=== PATIENT | female | born 1960 | race African-American/Black ===

== ENCOUNTER 2018-01-14 17:52 | Inpatient (IN) | payer OTHER ==
[~2018-01-14] VITALS: Ht 157.5 cm; Wt 65.8 kg
[2018-01-14] MEDS ORDERED: IBUP-1953 PO (18:14)
[2018-01-14] MEDS ORDERED: ATOR40TA PO (18:14)
[2018-01-14] MEDS ORDERED: LOSA50TA21 PO (18:14)
[2018-01-14] MEDS ORDERED: ASPI-1152 PO (18:14)
[2018-01-14] MEDS ORDERED: HUM10VIA SQ (18:22)
[2018-01-14] MEDS ORDERED: IV NS 0.9% 1,000 ML BAG IV ONE (18:30)
[2018-01-14] MEDS ORDERED: LORAZEPAM INJ 2 MG/ML VIAL IVP ONE (18:30)
[2018-01-14 18:49] LABS: BASOPHILS % (AUTO) 0.6 % (0.0-2.0); EOSINOPHILS % (AUTO) 1.8 % (0.0-6.0); HEMATOCRIT 45 % (33-45); HEMOGLOBIN 14.7 g/dL (11.5-14.8); LYMPHOCYTES % (AUTO) 34.4 % (20.0-44.0); MEAN CORPUSCULAR HGB CONC 32 g/dl (31.0-36.0); MEAN CORPUSCULAR VOLUME 91 fL (82-100); MONOCYTES # (AUTO) 0.3 /CMM (0.1-1.30); MONOCYTES % (AUTO) 5.9 % (2.0-12.0); NEUTROPHILS # (AUTO) 3.5 /CMM (1.8-8.9); NEUTROPHILS % (AUTO) 57.3 % (43.0-81.0); PLATELET COUNT (AUTO) 330 /CMM (150-450); RDW COEFFICIENT OF VARIATION 12.5 (11.5-15.0); RED BLOOD CELL COUNT(AUTO) 4.98 MIL/uL (4.0-5.2); WHITE BLOOD COUNT (AUTO) 5.9 K/uL (4.3-11.0)
[2018-01-14 18:56] LABS: ALBUMIN 3.8 g/dL (3.4-5.0); BILIRUBIN,DIRECT 0.1 mg/dL (0.0-0.2); BILIRUBIN,TOTAL 0.3 mg/dL (0.2-1.0); CALCIUM, SERUM 9.4 mg/dL (8.5-10.1); POTASSIUM 4.1 mmol/L (3.5-5.1); TOTAL PROTEIN, SERUM 7.9 g/dL (6.4-8.2)
[2018-01-14] MEDS ORDERED: LORAZEPAM INJ 2 MG/ML VIAL ONE (19:02)
[2018-01-14] MEDS ORDERED: LEVETIRACETAM (500MG) 500 MG/5 ML VIAL IV ONE (20:00)
[2018-01-14] MEDS ORDERED: LEVETIRACETAM (500MG) 500 MG in IV NS 0.9% 100 ML IV ONE (20:00)
[2018-01-14] MEDS ORDERED: ENALAPRILAT INJ (1.25 MG/ML) 1.25 MG/ML VIAL IV PRN (20:30)
[2018-01-14] MEDS ORDERED: MORPHINE SULFATE INJ 2 MG/ML DISP.SYRIN IV PRN (20:30)
[2018-01-14] MEDS ORDERED: INSULIN GLARGINE, 100 UNIT/ML CARTRIDGE SQ ONE ×2 (20:30→21:56)
[2018-01-14] MEDS ORDERED: MAG HYDROX/AL HYDROX/SIMETH 30 ML UDC PO PRN (20:30)
[2018-01-14] MEDS ORDERED: Z GUARD REMEDY 2 OZ OINT TP PRN (20:30)
[2018-01-14] MEDS ORDERED: LORAZEPAM INJ 2 MG/ML VIAL IV PRN (20:30)
[2018-01-14] MEDS ORDERED: ACETAMINOPHEN 325 MG TABLET PO PRN (20:30)
[2018-01-14] MEDS ORDERED: MAGNESIUM HYDROXIDE 30 ML UDC PO PRN (20:30)
[2018-01-14] MEDS ORDERED: ONDANSETRON HCL/PF 4 MG/2 ML VIAL IVP PRN (20:30)
[2018-01-14 21:29] VITALS: BP 176/110
[2018-01-14] MEDS: hydrALAZINE HCL IV 20 MG VIAL IV PRN (21:30)
[2018-01-14] MEDS: INSULIN REGULAR, HUMAN 100 UNIT/ML 3 ML VIAL SQ PRN (21:32)
[2018-01-14] MEDS: IV NS 0.9% 1,000 ML IV PRN (21:40)
[2018-01-14] MEDS: BLOOD SUGAR DIAGNOSTIC 1 EACH STRIP IN SCH (21:41)
[2018-01-14] MEDS ORDERED: INSULIN REGULAR, HUMAN 100 UNIT/ML 3 ML VIAL ONE (21:54)
[2018-01-14] MEDS: ATORVASTATIN 40 MG TABLET PO SCH (22:00)
[2018-01-15] VITALS (7 sets, daily range): BP systolic 134–159; BP diastolic 73–90
[2018-01-15] MEDS: BLOOD SUGAR DIAGNOSTIC 1 EACH STRIP IN SCH ×6 (01:05→21:44)
[2018-01-15] MEDS: DEXTROSE 50%-WATER 50 ML DISP.SYRIN IV PRN (05:05)
[2018-01-15] MEDS: IV NS 0.9% 1,000 ML IV PRN ×2 (05:11→15:33)
[2018-01-15 07:36] LABS: CALCIUM, SERUM 8.7 mg/dL (8.5-10.1); CREATININE 0.8 mg/dL (0.6-1.3); MAGNESIUM 1.9 mg/dL (1.8-2.4); PHOSPHORUS 3.6 mg/dL (2.5-4.9); POTASSIUM 3.4 mmol/L (3.5-5.1)
[2018-01-15 07:49] LABS: BASOPHILS % (AUTO) 0.3 % (0.0-2.0); EOSINOPHILS % (AUTO) 0.3 % (0.0-6.0); HEMATOCRIT 39 % (33-45); HEMOGLOBIN 12.6 g/dL (11.5-14.8); LYMPHOCYTES # (AUTO) 1.2 /CMM (0.8-4.8); LYMPHOCYTES % (AUTO) 15.8 % (20.0-44.0); MEAN CORPUSCULAR HGB CONC 32 g/dl (31.0-36.0); MEAN CORPUSCULAR VOLUME 93 fL (82-100); MONOCYTES # (AUTO) 0.5 /CMM (0.1-1.30); MONOCYTES % (AUTO) 6.6 % (2.0-12.0); NEUTROPHILS # (AUTO) 5.8 /CMM (1.8-8.9); PLATELET COUNT (AUTO) 307 /CMM (150-450); RDW COEFFICIENT OF VARIATION 13.5 (11.5-15.0); RED BLOOD CELL COUNT(AUTO) 4.21 MIL/uL (4.0-5.2); WHITE BLOOD COUNT (AUTO) 7.5 K/uL (4.3-11.0)
[2018-01-15] MEDS: ASPIRIN EC 81 MG TABLET.DR PO SCH (09:10)
[2018-01-15] MEDS: LOSARTAN POTASSIUM 50 MG TABLET PO SCH (09:11)
[2018-01-15] MEDS: LEVETIRACETAM (500MG) 500 MG in IV NS 0.9% 100 ML IV SCH ×2 (09:12→21:45)
[2018-01-15] MEDS: INSULIN REGULAR, HUMAN 100 UNIT/ML 3 ML VIAL SQ PRN ×3 (09:33→21:48)
[2018-01-15] MEDS ORDERED: POTASSIUM CHLORIDE 20 MEQ TAB.PRT.SR PO SCH (11:00)
[2018-01-15] MEDS: HYDROCODONE/APAP 5/325MG 1 EACH TABLET PO PRN (13:40)
[2018-01-15] MEDS: ATORVASTATIN 40 MG TABLET PO SCH (21:45)
[2018-01-16] VITALS: BP 149/91
[2018-01-16] MEDS: BLOOD SUGAR DIAGNOSTIC 1 EACH STRIP IN SCH ×6 (00:51→20:51)
[2018-01-16] MEDS: INSULIN REGULAR, HUMAN 100 UNIT/ML 3 ML VIAL SQ PRN ×4 (00:53→20:54)
[2018-01-16 04:00] VITALS: BP 158/91
[2018-01-16] MEDS: IV NS 0.9% 1,000 ML IV PRN ×2 (04:01→15:41)
[2018-01-16] MEDS: DEXTROSE 50%-WATER 50 ML DISP.SYRIN IV PRN (05:04)
[2018-01-16 06:18] LABS: BASOPHILS % (AUTO) 0.2 % (0.0-2.0); EOSINOPHILS % (AUTO) 2.8 % (0.0-6.0); HEMATOCRIT 37 % (33-45); HEMOGLOBIN 11.9 g/dL (11.5-14.8); LYMPHOCYTES # (AUTO) 1.8 /CMM (0.8-4.8); LYMPHOCYTES % (AUTO) 28.5 % (20.0-44.0); MEAN CORPUSCULAR HGB CONC 32 g/dl (31.0-36.0); MEAN CORPUSCULAR VOLUME 94 fL (82-100); MONOCYTES # (AUTO) 0.5 /CMM (0.1-1.30); MONOCYTES % (AUTO) 7.8 % (2.0-12.0); NEUTROPHILS # (AUTO) 3.7 /CMM (1.8-8.9); NEUTROPHILS % (AUTO) 60.7 % (43.0-81.0); PLATELET COUNT (AUTO) 290 /CMM (150-450); RDW COEFFICIENT OF VARIATION 13.4 (11.5-15.0); RED BLOOD CELL COUNT(AUTO) 3.99 MIL/uL (4.0-5.2); WHITE BLOOD COUNT (AUTO) 6.2 K/uL (4.3-11.0)
[2018-01-16 06:53] LABS: CALCIUM, SERUM 8.3 mg/dL (8.5-10.1); CREATININE 0.8 mg/dL (0.6-1.3); POTASSIUM 3.2 mmol/L (3.5-5.1)
[2018-01-16 08:00] VITALS: BP 179/112
[2018-01-16] MEDS: ASPIRIN EC 81 MG TABLET.DR PO SCH (08:28)
[2018-01-16] MEDS: LEVETIRACETAM (250 MG) 250 MG TABLET PO SCH ×2 (08:28→20:10)
[2018-01-16] MEDS: LOSARTAN POTASSIUM 50 MG TABLET PO SCH (08:30)
[2018-01-16] MEDS: hydrALAZINE HCL IV 20 MG VIAL IV PRN (09:30)
[2018-01-16] MEDS ORDERED: POTASSIUM CHLORIDE 20 MEQ TAB.PRT.SR PO ONE (10:00)
[2018-01-16 12:00] VITALS: BP 146/86
[2018-01-16 16:00] VITALS: BP 148/93
[2018-01-16 20:00] VITALS: BP 164/110
[2018-01-16] MEDS: HYDROCODONE/APAP 5/325MG 1 EACH TABLET PO PRN (20:22)
[2018-01-16] MEDS: ATORVASTATIN 40 MG TABLET PO SCH (22:13)
[2018-01-16] MEDS: INSULIN GLARGINE, 100 UNIT/ML CARTRIDGE SQ SCH (22:14)
[2018-01-17] VITALS: BP_SYST 157; BP_DIAS 95; BP_DIAS 97
[2018-01-17] MEDS: BLOOD SUGAR DIAGNOSTIC 1 EACH STRIP IN SCH ×6 (01:53→21:28)
[2018-01-17] MEDS: INSULIN REGULAR, HUMAN 100 UNIT/ML 3 ML VIAL SQ PRN ×4 (01:56→18:38)
[2018-01-17 04:00] VITALS: BP 135/101
[2018-01-17 08:00] VITALS: BP 156/104
[2018-01-17] MEDS: ASPIRIN EC 81 MG TABLET.DR PO SCH (08:48)
[2018-01-17] MEDS: LEVETIRACETAM (250 MG) 250 MG TABLET PO SCH ×2 (08:49→21:28)
[2018-01-17] MEDS: LOSARTAN POTASSIUM 50 MG TABLET PO SCH (08:49)
[2018-01-17] MEDS: IV NS 0.9% 1,000 ML IV PRN ×2 (09:28→21:28)
[2018-01-17 12:00] VITALS: BP 172/105
[2018-01-17] MEDS ORDERED: LEVE250T2 PO (12:35)
[2018-01-17 16:00] VITALS: BP 155/92
[2018-01-17 20:00] VITALS: BP 147/85
[2018-01-17] MEDS: ATORVASTATIN 40 MG TABLET PO SCH (21:28)
[2018-01-17] MEDS: INSULIN GLARGINE, 100 UNIT/ML CARTRIDGE SQ SCH (21:42)
[2018-01-17 23:36] LABS: APPEARANCE,URINE CLOUDY (CLEAR); BILIRUBIN,URINE NEGATIVE (NEGATIVE); BLOOD, URINE TRACE-INTA Ery/uL (NEGATIVE); COLOR,URINE YELLOW (YELLOW); KETONES,URINE NEGATIVE (NEGATIVE); LEUKOCYTE ESTERASE ,URINE 2+ (NEGATIVE); NITRITE, URINE NEGATIVE (NEGATIVE); PROTEIN,URINE NEGATIVE (NEGATIVE); UGLUCOSE 3+ mg/dL (NEGATIVE); UROBILINOGEN,URINE 0.2 EU/dL (0.2)
[2018-01-17 23:50] LABS: BACTERIA,URINE Few /HPF (None Seen); RBC,URINE 0-2 /HPF (0-2); SQUAMOUS EPITHELIAL CELL,UR Few /HPF (None Seen); YEAST,URINE Many /HPF (None Seen)
[2018-01-18] VITALS: BP 158/95
[2018-01-18] MEDS: BLOOD SUGAR DIAGNOSTIC 1 EACH STRIP IN SCH ×3 (01:40→08:16)
[2018-01-18] MEDS: INSULIN REGULAR, HUMAN 100 UNIT/ML 3 ML VIAL SQ PRN ×3 (01:41→14:26)
[2018-01-18 04:00] VITALS: BP 158/94
[2018-01-18 08:00] VITALS: BP_SYST 158; BP_SYST 176; BP_DIAS 100; BP_DIAS 105
[2018-01-18] MEDS: ASPIRIN EC 81 MG TABLET.DR PO SCH (08:06)
[2018-01-18] MEDS: LEVETIRACETAM (250 MG) 250 MG TABLET PO SCH (08:06)
[2018-01-18] MEDS: LOSARTAN POTASSIUM 50 MG TABLET PO SCH (08:06)
[2018-01-18] MEDS ORDERED: FLUCONAZOLE IN NS 100 MG in PREMIX 1 EA IV SCH ×2 (09:00)
[2018-01-18] MEDS ORDERED: CEPHALEXIN MONOHYDRATE 500 MG CAPSULE PO SCH (09:00)
[2018-01-18 09:45] LABS: EOSINOPHILS % (AUTO) 2.1 % (0.0-6.0); HEMATOCRIT 42 % (33-45); HEMOGLOBIN 13.3 g/dL (11.5-14.8); LYMPHOCYTES % (AUTO) 13.7 % (20.0-44.0); MEAN CORPUSCULAR HGB CONC 32 g/dl (31.0-36.0); MEAN CORPUSCULAR VOLUME 93 fL (82-100); MONOCYTES # (AUTO) 0.4 /CMM (0.1-1.30); MONOCYTES % (AUTO) 5.2 % (2.0-12.0); NEUTROPHILS # (AUTO) 5.7 /CMM (1.8-8.9); PLATELET COUNT (AUTO) 315 /CMM (150-450); RDW COEFFICIENT OF VARIATION 13.3 (11.5-15.0); RED BLOOD CELL COUNT(AUTO) 4.49 MIL/uL (4.0-5.2); WHITE BLOOD COUNT (AUTO) 7.2 K/uL (4.3-11.0)
[2018-01-18 09:54] LABS: CALCIUM, SERUM 9.1 mg/dL (8.5-10.1); CREATININE 0.9 mg/dL (0.6-1.3); POTASSIUM 3.9 mmol/L (3.5-5.1)
[2018-01-18] MEDS: IV NS 0.9% 1,000 ML IV PRN (09:59)
[2018-01-18] MEDS ORDERED: FLUC200T PO (11:26)
[2018-01-18] MEDS ORDERED: CIPR-262 PO (11:26)
[2018-01-18] MEDS ORDERED: METOPROLOL TARTRATE 50 MG TABLET PO SCH (11:30)
[2018-01-18] MEDS ORDERED: DEXTROSE 50%-WATER 50 ML DISP.SYRIN IV PRN (12:30)
[2018-01-18] MEDS ORDERED: BLOOD SUGAR DIAGNOSTIC 1 EACH STRIP IN SCH (13:00)
[2018-01-18 15:39] VITALS: BP 145/91
== END 2018-01-18 16:10 | disposition home or self-care (01) | DRG 53 ==
LOC: EDBD 17:57 → ER 17:57 → EDBD 20:20 → TELE1 20:20 → MEDSG1 01-18 10:01
PROVIDERS: ADMIT Internal Medicine; ATTEND Internal Medicine
DX: G40.909 Epilepsy, unspecified, not intractable, without status epilepticus (principal); G93.89 Other specified disorders of brain; E11.65 Type 2 diabetes mellitus with hyperglycemia; I25.10 Atherosclerotic heart disease of native coronary artery without angina pectoris; E78.5 Hyperlipidemia, unspecified; B37.49 Other urogenital candidiasis; Z79.4 Long term (current) use of insulin; K21.9 Gastro-esophageal reflux disease without esophagitis; E87.6 Hypokalemia; I10 Essential (primary) hypertension; Z95.1 Presence of aortocoronary bypass graft; I69.30 Unspecified sequelae of cerebral infarction
CPT/HCPCS: 36415; 70450-TC; 71045-TC; 73030-TC; 73060-TC; 73090-TC; 80048-TC; 80061-TC; 80076-TC; 80305; 81000-TC; 82962-TC; 83735-TC; 84100-TC; 85025-TC; 87081-TC; 87086-TC; 93971-TC; A4216; A4606; J0360; J1450; J1815; J1953; J2060; J2270; J7030; Z7610